=== PATIENT | female | born 1950 | race Hispanic/Latino ===

== ENCOUNTER 2017-05-21 12:18 | Emergency (ER) | payer MEDICARE, OTHER ==
[2017-05-21 12:19] VITALS: BMI 22.8
[2017-05-21 12:56] VITALS: TEMP 98.8; O2SAT 98
[2017-05-21] MEDS ORDERED: Sodium Chloride 0.9% 1,000 ML IV ONE (14:41)
[2017-05-21 14:57] LABS: BASO % 0.4 % (0.0-2.0); EOS # 0.2 K/uL (0.0-0.7); EOS % 1.8 % (0.0-4.0); HEMOGLOBIN 14.5 g/dL (11.0-16.0); LYMPH # 2.3 K/uL (1.0-4.3); LYMPH % 23.8 % (20.0-40.0); MEAN CELL VOLUME 91.2 fL (81.0-99.0); MEAN CORPUSCULAR HEMOGLOBIN 31.4 pg (27.0-31.0); MEAN CORPUSCULAR HGB CONC 34.5 g/dL (33.0-37.0); MEAN PLATELET VOLUME 6.9 fL (7.2-11.7); MONO # 0.8 K/uL (0.0-0.8); MONO % 8.3 % (0.0-10.0); NEUT # 6.5 K/uL (1.8-7.0); NEUT % 65.7 % (50.0-75.0); RBC 4.6 Mil/uL (3.80-5.20); RED CELL DISTRIBUTION WIDTH 13.6 % (11.5-14.5); WHITE BLOOD COUNT 9.9 K/uL (4.8-10.8)
[2017-05-21 15:13] LABS: SQUAMOUS EPITHIAL 1 /hpf (0-5); URINE BACTERIA RARE (<OCC); URINE BILIRUBIN NEGATIVE (NEGATIVE); URINE BLOOD 2+ (NEGATIVE); URINE CLARITY Clear (Clear); URINE COLOR Yellow (YELLOW); URINE GLUCOSE (UA) NORMAL (Normal); URINE LEUKOCYTE ESTERASE TRACE Leu/uL (Negative); URINE PROTEIN NEGATIVE (NEGATIVE); URINE UROBILINOGEN NORMAL mg/dL (0.2-1.0)
[2017-05-21 15:29] LABS: ALB/GLOB RATIO 1.1 (1.0-2.1); ALBUMIN 4.9 g/dL (3.5-5.0); ALT/SGPT 49 U/L (9-52); AST/SGOT 55 U/L (14-36); BLOOD UREA NITROGEN 13 mg/dL (7-17); CALCIUM 9.9 mg/dl (8.6-10.4); GFR AFRICAN-AMERICAN > 60; GFR NON-AFRICAN AMERICAN > 60; LIPASE 246 U/L (23-300)
[2017-05-21 15:34] LABS: B-TYPE NATRIURETIC PEPTIDE 22.7 pg/mL (0-900)
--- NOTE | 2017-05-21 15:47 | RAD ---
PROCEDURE: Radiographs of the chest and abdomen (obstructive series) HISTORY: Abdominal pain COMPARISON: 06/14/2012 TECHNIQUE: AP radiograph of the chest, with upright and supine radiographs of the abdomen. FINDINGS: CHEST: Lungs: The lungs are well inflated and clear. There is a linear scar in the left lower lobe. No focal consolidation. Cardiovascular: Normal size heart. No pulmonary vascular congestion. Pleura: No pleural fluid. No pneumothorax. Other findings: None. ABDOMEN AND PELVIS: Bowel: The bowel gas pattern is nonspecific. No evidence of mechanical obstruction. Free air: None. Bones: Unremarkable. Other findings: There are multiple surgical clips in the left abdomen. IMPRESSION: Nonobstructive bowel-gas pattern. Clear lungs.
--- NOTE | 2017-05-21 16:01 | C.PDOC ---
History Of Present Illness 66 year old female presents to the ED for evaluation of subjective fevers and malaise which began yesterday. 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 She has not taken any medicine for symptoms. She denies nausea, vomiting. Time Seen by Provider: 05/21/17 14:29 Chief Complaint (Nursing): Abdominal Pain History Per: Patient History/Exam Limitations: no limitations Onset/Duration Of Symptoms: Hrs Current Symptoms Are (Timing): Still Present Associated Symptoms: Fever. denies: Nausea, Vomiting Additional History Per: Patient Past Medical History Reviewed: Historical Data, Nursing Documentation, Vital Signs Vital Signs: Last Vital Signs Temp 98.8 F 05/21/17 12:53 Pulse 79 05/21/17 16:21 Resp 16 05/21/17 16:21 BP 128/85 05/21/17 16:21 Pulse Ox 98 05/21/17 19:50 - Medical History PMH: Arthritis, HTN, Hypercholesterolemia Denies: HIV, Chronic Kidney Disease Surgical History: No Surg Hx - [facility] Procedures INJECT/INFUSE NEC (12/19/13) INSERT GASTRIC TUBE NEC (08/20/14) Family History: States: Unknown Family Hx - Social History Hx Tobacco Use: No Hx Alcohol Use: No Hx Substance Use: No - Immunization History Hx Tetanus Toxoid Vaccination: No Hx Influenza Vaccination: No Hx Pneumococcal Vaccination: No Review Of Systems Constitutional: Positive for: Fever, Malaise Gastrointestinal: Negative for: Nausea, Vomiting Physical Exam - Physical Exam Appears: Non-toxic, No Acute Distress Skin: Normal Color, Warm, Dry Head: Atraumatic, Normacephalic Eye(s): bilateral: Normal Inspection Oral Mucosa: Moist Neck: Supple Chest: Symmetrical, No Deformity, No Tenderness Cardiovascular: Rhythm Regular, No Murmur Respiratory: Normal Breath Sounds, No Rales, No Rhonchi, No Wheezing Extremity: Normal ROM, Capillary Refill (less than 2 seconds ) Neurological/Psych: Oriented x3, Normal Speech, Normal Cognition ED Course And Treatment - Laboratory Results Result Diagrams: 05/21/17 14:52 05/21/17 14:52 Lab Interpretation: Normal (ua neg, trop neg.) ECG: Interpreted By Me ECG Rhythm: Sinus Rhythm ECG Interpretation: Normal Rate From EC O2 Sat by Pulse Oximetry: 98 (on RA ) Pulse Ox Interpretation: Normal - Radiology CXR: Interpreted by Me CXR Interpretation: Yes: No Acute Disease - Other Rad abd x 2 X-Ray: Interpreted by Me (moderate stool/gas) Progress Note: Bloodwork, UA, Obstructive Series XR, and EKG ordered and reviewed. Pepcid IVP, Toradol IVP and IV Fluids administered. Reevaluation Time: 16:01 Reassessment Condition: Improved Medical Decision Making Medical Decision Making: normal eval and exam ? viral syndrome LOW susp of colon Ca recurrance as pt had colon resection with normal f/u colonoscopy "last year" ok to d/c home with symptomatic relief. Disposition Doctor Will See Patient In The: Office Counseled Patient/Family Regarding: Studies Performed, Diagnosis - Disposition Referrals: Francisco J Bay [Medical Doctor] - Disposition: HOME/ ROUTINE Disposition Time: 16:03 Condition: GOOD Additional Instructions: sigue donte maco de casa- Tylenol y Ibuprofeno mitzi necessario Hoy Examenes de la orina/EKG, laboratorios de la tuan todos NORMALES Sigue con Dr. Bay mitzi normal. Instructions: Fatigue (DC), Viral Syndrome (DC) Forms: [employer] (Thai) Print Language: SYRIAC - Clinical Impression Clinical Impression: Malaise and fatigue - Scribe Statement The provider has reviewed the documentation as recorded by the Scribe (Rosa M Cuevas) Provider Attestation: All medical record entries made by the Scribe were at my direction and personally dictated by me. I have reviewed the chart and agree that the record accurately reflects my personal performance of the history, physical exam, medical decision making, and the department course for this patient. I have also personally directed, reviewed, and agree with the discharge instructions and disposition.
[2017-05-21 16:22] VITALS: BP 128/85; PULSE 79; RESP 16
--- NOTE | 2017-05-22 23:36 | CARD ---
APPROVED REPORT EKG Measurement Heart [id number] <Conclusion> Normal sinus rhythm Normal ECG
== END 2017-05-21 16:21 | disposition home or self-care (01) ==
LOC: C.ER 12:18
DX: R53.81 Other malaise (principal); R53.83 Other fatigue; I10 Essential (primary) hypertension; E78.00 Pure hypercholesterolemia, unspecified
CPT/HCPCS: 74022; 80053; 81001; 83690; 83880; 84484; 85025; 93005; 96361; 96374; 96375; 99284; J1885; J7040